=== PATIENT | female | born 2000 | race Caucasian/White ===

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

== ENCOUNTER 2018-03-07 10:37 | Emergency (ER) | payer SELFPAY ==
[2018-03-07 11:39] VITALS: BP 118/54
--- NOTE | 2018-03-07 12:26 | UC ---
UC General HPI - HPI Summary HPI Summary: 17 y/o female presents to the urgent care accompany by mother c/o RT flank area since yesterday. 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 Pain is dull 3/10 and constant and worsen at touch w/o any radiation. Pt had nausea yesterday which resolved today, Pt took Advil PO 2 tabs yesterday and it helped to alleviate her symptoms. Pt denies any urinary symptoms, SOB, wheezing, URI, chest pain, abdominal pain, N/V/D, saddle anesthesia, urinary or fecal incontinence, fever. - History of Current Complaint Chief Complaint: UCGeneralIllness Stated Complaint: SIDE PAIN Time Seen by Provider: 03/07/18 12:11 Hx Obtained From: Patient, Family/Lap Machine Tender - mother Hx Last Menstrual Period: 02/25/18 Onset/Duration: Gradual Onset, Lasting Days - 1 day, Still Present, Worse Since - yesterday Timing: Constant - at touch Onset Severity: Mild Current Severity: Mild Pain Intensity: 3 Pain Location at: lateral side of the mid abdomen around Ribs 11-12 Associated Signs & Symptoms: Positive: Nausea. Negative: Abdominal Pain, Chest Pain, Dizziness, Diarrhea, Dysuria, Fever, Headache, Hematemesis - Allergy/Home Medications Allergies/Adverse Reactions: Allergies Allergy/AdvReac Type Severity Reaction Status Date / Time No Known Allergies Allergy Verified 09/10/15 21:51 PMH/Surg Hx/FS Hx/Imm Hx Previously Healthy: Yes Other Endocrine History: Anemia - Surgical History Surgical History: Yes Surgery Procedure, Year, and Place: BILAT EARDRUM RECONSTRUCTION - Family History Known Family History: Positive: Hypertension, Respiratory Disease - Social History Occupation: Student Lives: With Family Alcohol Use: None Substance Use Type: None Smoking Status (MU): Never Smoked Tobacco - Immunization History Vaccination Up to Date: Yes Review of Systems Constitutional: Negative Skin: Negative Eyes: Negative ENT: Negative Respiratory: Negative Cardiovascular: Negative Gastrointestinal: Other - RT flank pain around RT lateral ribs 11-12 Genitourinary: Negative Motor: Negative Neurovascular: Negative Musculoskeletal: Negative Neurological: Negative Psychological: Negative Is Patient Immunocompromised?: No All Other Systems Reviewed And Are Negative: Yes Physical Exam - Summary Physical Exam Summary: Vital Signs Reviewed: Yes General:Patient is a well developed and nourished obese female adolescent who is sitting comfortable in the examining table. Patient is not in any acute respiratory distress. Eyes: Positive: Conjunctiva Clear - PERRLA, EOMI, fundi grossly normal ENT: Positive: Normal ENT inspection, Hearing grossly normal, Pharynx normal, TMs normal Neck: Positive: Supple, Nontender, No Lymphadenopathy Respiratory: Positive: Chest non-tender, Lungs clear, Normal breath sounds, No respiratory distress Cardiovascular: Positive: RRR,S1 and S2 present, No Murmur, Pulses Normal, Brisk Capillary Refill Abdomen Description: Positive: Nontender, Abd: Flat with no distention. No surface trauma, scars, incisions. hyperactive bowel sounds present in all four quadrants. No tenderness, guarding, rigidity to palpation. No masses palpated, no pulsation in epigastric area. No organomegaly. Negative Wingate signs. No periumbilical tenderness. No rebound in the lower quadrants. NT over McBurneys point. . Good femoral pulses bilaterally. No hernia noted. No CVAT bilaterally Musculoskeletal: Musculoskeletal: Positive: Strength Intact, BACK: Patient walked into the urgent care room with symmetric ambulation, No signs of limping , antalgic, able to bear weight. No signs of trauma, No masses palpated. Point tenderness on the lateral side of the RT Ribs 11-12, No CVAT, no flank ecchymosis . No sacroiliac notch tenderness, No saddle anesthesia.ROM: limited due to pain, Straight Leg Raise: negative. Patellar reflexes: brisk, symmetric Muscle strength lower extremities. Dorsiflexion/ plantar flexion of ankles. Heel / toe walk. Lower extremities: Femoral, popliteal, posterior tibial, and dorsalis pedis pulses WNL. Pt refuse rectal exam. Neuro: Alert and oriented x 3. No acute neurological deficits. Speech is normal. Psychological: WNL Skin: Dry and warm Triage Information Reviewed: Yes Vital Signs: Initial Vital Signs Temp 97.3 F 03/07/18 11:35 Pulse 71 03/07/18 11:35 Resp 18 03/07/18 11:35 BP 118/54 03/07/18 11:35 Pulse Ox 100 03/07/18 11:35 Course/Dx - Course Course Of Treatment: 17 y/o female presents to the urgent care accompany by mother c/o RT flank area since yesterday. 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 Pain is dull 3/10 and constant and worsen at touch w/o any radiation. Pt had nausea yesterday which resolved today, Pt took Advil PO 2 tabs yesterday and it helped to alleviate her symptoms. Pt denies any urinary symptoms, SOB, wheezing, URI, chest pain, abdominal pain, N/V/D, saddle anesthesia, urinary or fecal incontinence, fever.Hx obtained. Pt w/ point tenderness on the lateral side of the RT Ribs 11-12, NO RT CVA tenderness on examiantion. O2sat: 100%. UA: negative, test; negative. Chest X- ray and RT side Rib X-ray ordered to r/o any abnormality. Impression: no cardiopulmonary disease observed, minimal atelectasis observed at the base of both lungs. Pt w/ Rt side mid back muscle spasm. Ibuprofen PO ordered at the clinic. Given by nurse. Pt tolerated well medication pain decrease. Pt Rx Ibuprofen PO, flexeril PO and given an incentive spirometry to expand lungs. Patient was instructed to the f/u with PCP if symptoms do not improve or worsen. Patient understands and agrees. Plan of care was discussed with the patient and D/C instructions explained and patient understands and agrees. All questions were answered at patient satisfaction. Pt left clinic hemodynamically stable. - Differential Dx - Multi-Symptom Differential Diagnoses: Urinary Tract Infection, Other - renal colic, atelectasis,pneumothorax, cholecystitis, muscle spasm Provider Diagnoses: 1- RT side mid back muscle spasm. 2-Atelectasis Discharge - Sign-Out/Discharge Documenting (check all that apply): Discharge/Admit/Transfer - D/C home - Discharge Plan Condition: Stable Disposition: HOME Prescriptions: Cyclobenzaprine TAB* [Flexeril 10 MG TAB*] 10 mg PO TID PRN #21 tab PRN Reason: muscle spasm Ibuprofen TAB* [Motrin TAB* 800 MG] 800 mg PO Q6H PRN #30 tab PRN Reason: Pain Patient Education Materials: Muscle Spasm (ED), Atelectasis (ED) Forms: *Work Release Referrals: Martha Oakes, CAMERA ENGINEER [Primary Care Provider] - 3 Days Additional Instructions: 1- Please take Ibuprofen PO as directed after meals for pain. 2- Take Flexeril PO as directed for muscle spasm. Please do not drive while taking the medication. 3- Wear a back support. Avoid strenuous exercise of heavy lifting. 4- Do the Spirometry therapy as directed to expand your lungs. If you develop severe SOB, chest pain or abdominal pain please go to the ER immediately for further management. 5- Please follow up with your PCP in 1 week if not improvement of symptoms, for further management. - Billing Disposition and Condition Condition: STABLE Disposition: HOME
[2018-03-07] MEDS ORDERED: Ibuprofen TAB* 400 MG PO ONE (12:49)
--- NOTE | 2018-03-07 14:09 | RAD ---
INDICATION: Right-sided rib pain. COMPARISON: Comparison is made with a prior chest x-ray study from December 25, 2016. TECHNIQUE: 4 views of the right ribs and dual-energy PA views of the chest were obtained. FINDINGS: No fracture or significant focal osseous abnormality is seen. The heart is within normal limits in size. The lungs are underinflated. There is minimal increased density at both lung bases suggestive of atelectasis. No pleural effusion or pneumothorax is seen. IMPRESSION: NO EVIDENCE FOR FRACTURE.
== END 2018-03-07 14:40 | disposition home or self-care (01) ==
LOC: UCEAST 10:37
DX: R07.81 Pleurodynia (principal); R10.11 Right upper quadrant pain; R11.0 Nausea; Z32.02 Encounter for pregnancy test, result negative; D64.9 Anemia, unspecified
CPT/HCPCS: 81003; 84702; 99212; A9270-GY; G0463

== ENCOUNTER 2018-05-10 16:42 | Emergency (ER) | payer SELFPAY ==
[2018-05-10 16:55] VITALS: BP 118/77
--- NOTE | 2018-05-10 17:42 | RAD ---
INDICATION: Intracranial injury COMPARISON: None TECHNIQUE: Noncontrast axial source images were acquired from the skull base to the vertex. FINDINGS: Ventricles/sulci: The ventricles and cisterns are normal in size and configuration for age. Brain parenchyma: There is no focal parenchymal finding, evidence of intracranial mass, or intracranial mass effect. Intracranial hemorrhage:None. Extra-axial spaces: There are no abnormal extra axial fluid collections or evidence of extra-axial mass. Calvarium: There is no calvarial fracture or other calvarial abnormality. Scalp: There is no evidence of scalp or extracalvarial soft tissue abnormality. Paranasal sinuses/mastoid: The paranasal sinuses and mastoid air cells are clear. Other: None. IMPRESSION: NEGATIVE EXAMINATION
--- NOTE | 2018-05-10 18:20 | UC ---
Joseph Dangelo Elizabeth, scribed for Alberto Duncan MD on 05/10/18 at 1720 . Head Injury HPI - HPI Summary HPI Summary: This patient is a 17 year old F presenting to [facility] with a chief complaint of constant headache in the back of her head since 3 days ago. The patient reports that she fell off a chair at work 3 days ago on 05/07/18 at 20:00 and hit the back of her head on the wall. The patient denies LOC. The patient rates the pain 3/10 in severity. Symptoms aggravated by nothing. Symptoms alleviated by nothing. Patient reports nausea and photophobia. Patient denies neck pain. The patient notes that she took Tylenol yesterday. - History Of Current Complaint Chief Complaint: UCHeadInjury Stated Complaint: HEAD INJURY Time Seen by Provider: 05/10/18 17:08 Hx Obtained From: Patient Hx Last Menstrual Period: April 02, 2018 Onset/Duration: Sudden Onset, Lasting Days - 3 days, Still Present Severity Currently: Mild Severity Initially: Mild Pain Intensity: 3 Pain Scale Used: 0-10 Numeric Aggravating Factor(s): Nothing Alleviating Factor(s): Nothing Associated Signs And Symptoms: Positive: Nausea. Negative: LOC (Time In Secs./ Mins/Hrs), Neck Pain - Allergies/Home Medications Allergies/Adverse Reactions: Allergies Allergy/AdvReac Type Severity Reaction Status Date / Time No Known Allergies Allergy Verified 09/10/15 21:51 Home Medications: Home Medications NK [No Home Medications Reported] 05/10/18 [History Confirmed 05/10/18] PMH/Surg Hx/FS Hx/Imm Hx Previously Healthy: Yes - Surgical History Surgical History: Yes Surgery Procedure, Year, and Place: BILAT EARDRUM RECONSTRUCTION - Family History Known Family History: Positive: Hypertension, Respiratory Disease - Social History Alcohol Use: None Substance Use Type: None Smoking Status (MU): Never Smoked Tobacco - Immunization History Vaccination Up to Date: Yes Review of Systems Constitutional: Negative - negative fever Eyes: Photophobia Gastrointestinal: Nausea Neurological: Headache All Other Systems Reviewed And Are Negative: Yes Physical Exam - Summary Physical Exam Summary: General: well-appearing, no pain distress Skin: warm, color reflects adequate perfusion, dry Head: mildly tender to left occiput with some swelling Eyes: EOMI, MALINDA ENT: normal Neck: supple, nontender Respiratory: CTA, breath sounds present Cardiovascular: RRR Abdomen: soft, nontender Bowel: present Musculoskeletal: normal, strength/ROM intact Neurological: sensory/motor intact, A&O x3 Psychological: affect/mood appropriate Triage Information Reviewed: Yes Vital Signs: Initial Vital Signs Temp 98.7 F 05/10/18 16:52 Pulse 100 05/10/18 16:52 Resp 18 05/10/18 16:52 BP 118/77 05/10/18 16:52 Pulse Ox 98 05/10/18 16:52 Vital Signs Reviewed: Yes Diagnostics - Radiology CT Brain Xray Interpretation: No Acute Changes - IMPRESSION: NEGATIVE EXAMINATION. Dr. Duncan has reviewed this report. Radiology Interpretation Completed By: Radiologist Head Injury Course/Dx - Course Course Of Treatment: DISCUSSED CT RESULTS WITH THE PATIENT. OUT OF WORK; RETURN TO WORK WITHOUT RESTRICIONS ON 05/14/18. - Differential Dx/Diagnosis Provider Diagnoses: HEAD INJURY. CONCUSSION Discharge - Sign-Out/Discharge Documenting (check all that apply): Discharge/Admit/Transfer - Discharge Plan Condition: Stable Disposition: HOME Discharge Disposition Comment: discharge home Patient Education Materials: Concussion (ED), Head Injury (ED) Forms: *Work Release Referrals: Martha Oakes NP [Primary Care Provider] - - Billing Disposition and Condition Condition: STABLE Disposition: Home The documentation as recorded by the Joseph boone Elizabeth accurately reflects the service I personally performed and the decisions made by me, Alberto Duncan MD.
== END 2018-05-10 18:03 | disposition home or self-care (01) ==
LOC: UCEAST 16:42
DX: S09.90XA Unspecified injury of head, initial encounter (principal); S06.0X0A Concussion without loss of consciousness, initial encounter; W07.XXXA Fall from chair, initial encounter; Y92.9 Unspecified place or not applicable
CPT/HCPCS: 70450; 99211; G0463

== ENCOUNTER 2019-02-25 19:21 | Emergency (ER) | payer SELFPAY ==
[2019-02-25 19:28] VITALS: BP 125/87
--- NOTE | 2019-02-25 20:15 | UC ---
Back Pain HPI - HPI Summary HPI Summary: Lower back pain extending into hips, no injury. - History of Current Complaint Chief Complaint: UCBackPain Stated Complaint: BACK PAIN Time Seen by Provider: 02/25/19 19:54 Hx Obtained From: Patient Hx Last Menstrual Period: [id number] Onset/Duration: Gradual Onset, Lasting Days Timing: Constant Severity Initially: Moderate Severity Currently: Moderate Pain Intensity: 6 Back Pain: Is Discrete @ - low back Character: Aching, Stiffness Aggravating Factor(s): Movement, Lifting, Bending Alleviating Factor(s): Rest - Allergies/Home Medications Allergies/Adverse Reactions: Allergies Allergy/AdvReac Type Severity Reaction Status Date / Time No Known Allergies Allergy Verified 02/25/19 19:28 Home Medications: Home Medications Ferrous Gluconate [Iron] 240 mg PO DAILY 02/25/19 [History Confirmed 02/25/19] PMH/Surg Hx/FS Hx/Imm Hx Previously Healthy: Yes - Surgical History Surgical History: Yes Surgery Procedure, Year, and Place: BILAT EARDRUM RECONSTRUCTION - Family History Known Family History: Positive: Hypertension, Respiratory Disease - Social History Alcohol Use: None Substance Use Type: None Smoking Status (MU): Never Smoked Tobacco - Immunization History Vaccination Up to Date: Yes Review of Systems All Other Systems Reviewed And Are Negative: Yes Musculoskeletal: Positive: Arthralgia, Decreased ROM, Myalgia Is Patient Immunocompromised?: No Physical Exam Triage Information Reviewed: Yes Appearance: Well-Appearing, Pain Distress, Obese Vital Signs: Initial Vital Signs Temp 96.3 F 02/25/19 19:24 Pulse 95 02/25/19 19:24 Resp 20 02/25/19 19:24 BP 125/87 02/25/19 19:24 Pulse Ox 99 02/25/19 19:24 Eye Exam: Normal ENT Exam: Normal Dental Exam: Normal Neck exam: Normal Respiratory Exam: Normal Cardiovascular Exam: Normal Abdominal Exam: Normal Bowel Sounds: Positive: Present Musculoskeletal: Positive: Strength Intact, No Edema, ROM Limited @ - in trunk flex and ext due to pain Neurological Exam: Normal Psychological Exam: Normal Skin Exam: Normal Back Pain Course/Dx - Course Course Of Treatment: hx obtained, exam performed, meds reviewed, UA obtained - Differential Dx/Diagnosis Differential Diagnosis/HQI/PQRI: Fracture, Herniated Disc, Strain, Sprain Provider Diagnosis: Sacroiliac inflammation Discharge - Sign-Out/Discharge Documenting (check all that apply): Patient Departure All imaging exams completed and their final reports reviewed: No Studies - Discharge Plan Condition: Stable Disposition: HOME Prescriptions: Cyclobenzaprine TAB* [Flexeril 10 MG TAB*] 10 mg PO TID PRN #12 tab PRN Reason: Spasms Patient Education Materials: Sacroiliitis (ED) Referrals: Martha Oakes NP [Primary Care Provider] - Additional Instructions: 1. take the flexeril as needed. 2. Use ibuprofen 600 mg and 1000 mg of tylenol every 6 hours for pain. 3. heat and stretch frequently - Billing Disposition and Condition Condition: STABLE Disposition: Home
[2019-02-25] MEDS ORDERED: Cyclobenzaprine TAB* 10 MG PO ONE (20:23)
== END 2019-02-25 20:35 | disposition home or self-care (01) ==
LOC: UCEAST 19:21
DX: M46.1 Sacroiliitis, not elsewhere classified (principal)
CPT/HCPCS: 81003; 99212; A9270-GY; G0463

== ENCOUNTER 2019-03-04 09:23 | Emergency (ER) | payer SELFPAY ==
[2019-03-04 09:45] VITALS: BP 115/76
[2019-03-04] MEDS ORDERED: Ipratropium 0.5MG/2.5ML NEB* 0.5 MG/2.5 ML NEB.SOLN INH ONE (10:34)
[2019-03-04] MEDS ORDERED: Albuterol 2.5 MG/3 ML NEB.SOL* (0.083%) INH ONE (10:34)
--- NOTE | 2019-03-04 11:59 | UC ---
Respiratory Complaint HPI - HPI Summary HPI Summary: 4 - 5 DAYS OF URI SYMPTOMS INCLUDING COUGH, CONGESTION AND SORE THROAT. WOKE UP THIS MORNING AND FELT IT WAS A LITTLE DIFFICULT TO TAKE A DEEP BREATH. HAD SOME PLEURITIC PAIN BUT DENIES ANY FEVER, NAUSEA/VOMITING. HAS A HISTORY OF ASTHMA AND USED HER INHALER WHICH HELPED HER SYMPTOMS TRANSIENTLY. - History of Current Complaint Chief Complaint: UCRespiratory Stated Complaint: TBREATHING ISSUES Time Seen by Provider: 03/04/19 10:15 Hx Obtained From: Patient Hx Last Menstrual Period: 02/28/19 Onset/Duration: Gradual Onset, Lasting Days, Still Present Timing: Constant Severity Initially: Mild Severity Currently: Mild Pain Intensity: 1 Pain Scale Used: 0-10 Numeric Character: Cough: Nonproductive Aggravating Factors: Nothing Alleviating Factors: Nothing Associated Signs And Symptoms: Positive: URI, Nasal Congestion. Negative: Dyspnea, Fever, Wheezing - Allergies/Home Medications Allergies/Adverse Reactions: Allergies Allergy/AdvReac Type Severity Reaction Status Date / Time No Known Allergies Allergy Verified 02/25/19 19:28 PMH/Surg Hx/FS Hx/Imm Hx Respiratory History: Asthma - Surgical History Surgical History: Yes Surgery Procedure, Year, and Place: BILAT EARDRUM RECONSTRUCTION - Family History Known Family History: Positive: Hypertension, Respiratory Disease - Social History Alcohol Use: None Substance Use Type: None Smoking Status (MU): Never Smoked Tobacco - Immunization History Vaccination Up to Date: Yes Review of Systems All Other Systems Reviewed And Are Negative: Yes Constitutional: Positive: Negative ENT: Positive: Sore Throat, Nasal Discharge Respiratory: Positive: Shortness Of Breath, Cough Cardiovascular: Positive: Negative Gastrointestinal: Positive: Negative Physical Exam Triage Information Reviewed: Yes Appearance: Well-Appearing, No Pain Distress, Well-Nourished Vital Signs: Initial Vital Signs Temp 97.8 F 03/04/19 09:41 Pulse 107 03/04/19 09:41 Resp 16 03/04/19 09:41 BP 115/76 03/04/19 09:41 Pulse Ox 98 03/04/19 09:41 Vital Signs Reviewed: Yes Eyes: Positive: Conjunctiva Clear ENT: Positive: Hearing grossly normal, Pharynx normal, TMs normal. Negative: Tonsillar swelling, Tonsillar exudate Neck: Positive: Supple, Nontender, No Lymphadenopathy Respiratory Exam: Normal Cardiovascular Exam: Normal Abdomen Description: Positive: Soft Musculoskeletal: Positive: No Edema Neurological: Positive: Alert Psychological: Positive: Age Appropriate Behavior Skin: Negative: Rashes Re-Evaluation - Re-Evaluation First Eval Re-Evaluation Time: 11:40 - FEELS BETTER AFTER DUONEB Change: Improved Respiratory Course/Dx - Course Course Of Treatment: PATIENT WITH AN ACUTE URI THAT LIKELY TRIGGERED HER ASTHMA SYMPTOMS. SHE FELT BETTER AFTER ALBUTEROL/IPRATROPIUM NEBULIZER IN THE . WILL DISCHARGE HOME WITH A REFILL OF HER ALBUTEROL AND ALSO A SHORT COURSE OF PREDNISONE. FOLLOW- UP NEEDED. - Differential Dx/Diagnosis Provider Diagnosis: Asthma exacerbation, Acute URI Discharge - Sign-Out/Discharge Documenting (check all that apply): Patient Departure All imaging exams completed and their final reports reviewed: No Studies - Discharge Plan Condition: Stable Disposition: HOME Prescriptions: Albuterol HFA INHALER* [Ventolin HFA Inhaler*] 2 puff INH Q4H PRN #1 mdi PRN Reason: Shortness Of Breath predniSONE TAB* [Deltasone TAB*] 50 mg PO DAILY #5 tab Patient Education Materials: Asthma (ED), Upper Respiratory Infection (ED) Forms: *Work Release Referrals: Martha Oakes NP [Primary Care Provider] - If Needed Additional Instructions: YOU LIKELY DEVELOPED A VIRAL UPPER RESPIRATORY INFECTION WHICH TRIGGERED YOUR ASTHMA SYMPTOMS. YOU FELT BETTER AFTER A NEBULIZER TREATMENT HERE IN THE [facility]. WE WILL PRESCRIBE A REFILL FOR YOUR ALBUTEROL RESCUE INHALER WELL A 5 DAY COURSE OF PREDNISONE. REST, HYDRATE, OTC MEDS NEEDED. SEEK FOLLOW-UP IF YOU 'RE NOT IMPROVING OVER THE NEXT WEEK OR SO. - Billing Disposition and Condition Condition: STABLE Disposition: Home
== END 2019-03-04 12:02 | disposition home or self-care (01) ==
LOC: UCEAST 09:23
DX: J45.901 Unspecified asthma with (acute) exacerbation (principal); J06.9 Acute upper respiratory infection, unspecified
CPT/HCPCS: 99212; G0463

== ENCOUNTER 2019-03-15 07:59 | Emergency (ER) | payer SELFPAY ==
[2019-03-15 08:14] VITALS: BP 120/71
--- NOTE | 2019-03-15 08:56 | UC ---
General HPI - HPI Summary HPI Summary: Was seen in urgent care on 03/04 - dx with VIral illness and asthma exacerbation , she was given prednisone. States she was feeling better then about 4 days ago , cough and sore throat worsened. Lost her voice. States she has felt hot and cold. Some congestion and diarrhea. No documented fever. Works as a BUSINESS OPERATIONS MANAGER. States she only needed to use her albuterol inhaler one time yesterday. COncerned yesterday her co-worker was concerned because she didn't seem like herself. Using albuterol with no spacer. Also using mucinex. meds: reviewed - History of Current Complaint Chief Complaint: UCRespiratory Stated Complaint: COUGH SORE THROAT Time Seen by Provider: 03/15/19 08:47 Hx Last Menstrual Period: 03/02/19 Pain Intensity: 5 - Allergy/Home Medications Allergies/Adverse Reactions: Allergies Allergy/AdvReac Type Severity Reaction Status Date / Time No Known Allergies Allergy Verified 03/15/19 08:13 PMH/Surg Hx/FS Hx/Imm Hx Previously Healthy: Yes Respiratory History: Asthma - Surgical History Surgical History: Yes Surgery Procedure, Year, and Place: BILAT EARDRUM RECONSTRUCTION - Family History Known Family History: Positive: Hypertension, Respiratory Disease - Social History Alcohol Use: None Substance Use Type: None Smoking Status (MU): Never Smoked Tobacco - Immunization History Vaccination Up to Date: Yes Review of Systems All Other Systems Reviewed And Are Negative: Yes ENT: Positive: Sore Throat, Sinus Congestion Respiratory: Positive: Cough Gastrointestinal: Positive: Diarrhea Physical Exam Triage Information Reviewed: Yes Appearance: Well-Appearing Vital Signs: Initial Vital Signs Temp 97.8 F 03/15/19 08:11 Pulse 91 03/15/19 08:11 Resp 18 03/15/19 08:11 BP 120/71 03/15/19 08:11 Pulse Ox 97 03/15/19 08:11 ENT: Positive: Pharyngeal erythema, Nasal congestion, Other - clear fluid b/l Neck: Positive: Supple, Nontender Respiratory: Positive: Other: - diminished breath sounds with faint expiratory wheeze. No increase in WOB Cardiovascular: Positive: RRR, No Murmur Diagnostics - Radiology CXR Radiology Interpretation Completed By: Radiologist Summary of Radiographic Findings: No acute finding Course/Dx - Course Course Of Treatment: This is a 18 yr old with cough and sore throat that has gotten worse despite course of steroids Assessment CXR : Negative Strep: negative Nontoxic appearing Plan Tesssalon cap as needed for cough -take as directed Recommend use albuterol 2 puffs every 4 hours while sick - use with spacer If symptoms persist or worsen, recommend follow up with your primary care physician - Diagnoses Provider Diagnosis: Viral syndrome Discharge - Sign-Out/Discharge Documenting (check all that apply): Patient Departure All imaging exams completed and their final reports reviewed: Yes - Discharge Plan Condition: Fair Disposition: HOME Prescriptions: Benzonatate CAP* [Tessalon 100 MG CAP*] 200 mg PO TID PRN #30 cap PRN Reason: Cough Spacer/Holding Chamber (NF) [Easivent CHAMBER (NF)] 1 applic INH Q4HR PRN #1 device PRN Reason: Cough Patient Education Materials: Pharyngitis (ED) Forms: *Work Release Referrals: Martha Oakes NP [Primary Care Provider] - Additional Instructions: Tesssalon cap as needed for cough -take as directed Recommend use albuterol 2 puffs every 4 hours while sick - use with spacer If symptoms persist or worsen, recommend follow up with your primary care physician Recommend warm salt water gargle and spit as needed for sore throat - Billing Disposition and Condition Condition: FAIR Disposition: Home
== END 2019-03-15 10:07 | disposition home or self-care (01) ==
LOC: UCEAST 07:59
DX: B34.9 Viral infection, unspecified (principal); R05 Cough; J02.9 Acute pharyngitis, unspecified; J45.909 Unspecified asthma, uncomplicated; R09.81 Nasal congestion; R19.7 Diarrhea, unspecified; J34.89 Other specified disorders of nose and nasal sinuses
CPT/HCPCS: 71046; 87651; 99212; G0463

== ENCOUNTER 2019-05-15 09:31 | Emergency (ER) | payer SELFPAY ==
[2019-05-15 09:54] VITALS: BP 124/74
--- NOTE | 2019-05-15 10:12 | UC ---
Lower Extremity/Ankle HPI - HPI Summary HPI Summary: patient was accidently struck on side of L foot with Ivana lift on 05/06/19. did not seek treatment. had pain but was able to cont working Denies seeing black and blue skin or swelling. seemed to be better until yesterday when pain increased and today painful to walk on foot. denies any other injury. 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 - Allergies/Home Medications Allergies/Adverse Reactions: Allergies Allergy/AdvReac Type Severity Reaction Status Date / Time No Known Allergies Allergy Verified 05/15/19 09:48 PMH/Surg Hx/FS Hx/Imm Hx Previously Healthy: Yes Respiratory History: Asthma - Surgical History Surgical History: Yes Surgery Procedure, Year, and Place: BILAT EARDRUM RECONSTRUCTION - Family History Known Family History: Positive: Hypertension, Respiratory Disease - Social History Occupation: Employed Full-time Lives: With Family Alcohol Use: None Substance Use Type: None Smoking Status (MU): Never Smoked Tobacco - Immunization History Vaccination Up to Date: Yes Review of Systems All Other Systems Reviewed And Are Negative: Yes Constitutional: Positive: Negative Skin: Positive: Negative Respiratory: Positive: Negative Cardiovascular: Positive: Negative Musculoskeletal: Positive: Other: - L foot pain Neurological: Positive: Negative Psychological: Positive: Negative Is Patient Immunocompromised?: No Physical Exam Triage Information Reviewed: Yes Appearance: Well-Appearing, No Pain Distress, Obese Vital Signs: Initial Vital Signs Temp 99 F 05/15/19 09:49 Pulse 82 05/15/19 09:49 Resp 16 05/15/19 09:49 BP 124/74 05/15/19 09:49 Pulse Ox 100 05/15/19 09:49 Vital Signs Reviewed: Yes Respiratory Exam: Normal Respiratory: Positive: Lungs clear Cardiovascular Exam: Normal Musculoskeletal: Positive: Other: - point tenderness L 5th metatarsal area, no sweling, redness, or echymosis noted. No palpaple ankle pain. Demonstrates full ROM foot and ankle Neurological Exam: Normal Neurological: Positive: Alert Psychological Exam: Normal Skin Exam: Normal Lower Extremity Course/Dx - Differential Dx/Diagnosis Provider Diagnosis: Strain of left foot Discharge - Sign-Out/Discharge Documenting (check all that apply): Patient Departure All imaging exams completed and their final reports reviewed: Yes - NO ACUTE OSSEOUS INJURY Left foot - Discharge Plan Condition: Good Disposition: HOME Patient Education Materials: Muscle Strain (ED) Referrals: Martha Oakes NP [Primary Care Provider] - Jose M Campbell MD [Medical Doctor] - 1 Week (if pain is not better) Additional Instructions: use orthopedic shoe for 3-5 days elevate foot whenever possible use ibuprofen 600mg every 6 hours as needed for pain. Take with food - Billing Disposition and Condition Condition: GOOD Disposition: Home
== END 2019-05-15 10:45 | disposition home or self-care (01) ==
LOC: UCEAST 09:31
DX: S96.912A Strain of unspecified muscle and tendon at ankle and foot level, left foot, initial encounter (principal); W24.0XXA Contact with lifting devices, not elsewhere classified, initial encounter; Y92.89 Other specified places as the place of occurrence of the external cause
CPT/HCPCS: 99211; G0463